=== PATIENT | female | born 1955 | race American Indian/Alaskan Native ===

== ENCOUNTER 2020-12-22 14:18 | Emergency (ER) | payer OTHER ==
[~2020-12-22] VITALS: Ht 157.5 cm; Wt 90.7 kg
[~2020-12-22 14:18] MED LIST: ACETAMINOPHEN325 M1 PO; KEFLEX500 MG PO; SIMVASTATIN80 MG PO
[2020-12-22] MEDS ORDERED: DULOXETINE HCL60 MG PO (14:37)
[2020-12-22] MEDS ORDERED: NAPROXEN500 MG PO (14:38)
[2020-12-22] MEDS ORDERED: SUPER THERAVIT1 EACH PO (14:38)
[2020-12-22] MEDS ORDERED: CELEXA20 MG PO (14:38)
[2020-12-22] MEDS ORDERED: LISINOPRIL10 MG PO (14:38)
[2020-12-22] MEDS ORDERED: GARLIC500 MG PO (14:39)
[2020-12-22] MEDS ORDERED: IRON (14:39)
[2020-12-22 18:12] LABS: HEMATOCRIT 37.9 % (37.0-47.0); MCH 30.5 pg (26.0-34.0); MCHC 34.3 g/dL (28.0-37.0); MCV 88.7 fL (80.0-100.0); MPV 7.8 fl. (7.2-11.1); NUCLEATED RBCS 0 /100WBC; PLATELET COUNT* 332 thou/uL (150-400); RBC 4.27 mil/uL (4.20-5.00); RDW-CV 12.6 % (10.5-14.5); WBC 8.9 thou/uL (4.0-11.0)
[2020-12-22 18:13] LABS: CALCIUM 8.7 mg/dL (8.5-10.1); CREATININE 0.8 mg/dL (0.6-1.3); POTASSIUM 3.2 mmol/L (3.5-5.1)
[2020-12-22 18:17] LABS: ALBUMIN 2.9 g/dL (3.4-5.0); TOTAL BILIRUBIN 0.4 mg/dL (<0.1-1.0); TOTAL PROTEIN 7.3 g/dL (6.4-8.2)
[2020-12-22] MEDS ORDERED: TESSALON PERLE100 M1 PO (18:30)
[2020-12-22 18:45] VITALS: BP 130/73
[2020-12-22 18:57] LABS: ABSOLUTE LYMPHOCYTES 1.2 thou/uL (0.8-5.3); ABSOLUTE MONOCYTES 0.9 thou/uL (0.0-1.2); ABSOLUTE NEUTROPHILS 6.8 thou/uL (1.6-8.1); PLATELET ESTIMATE ADEQUATE
[2020-12-22 18:58] LABS: MICROCYTES Occasional
--- NOTE | 2020-12-23 09:16 | EKG ---
[place] [address] ELECTROCARDIOGRAM REPORT Name: MANISHA MORALES Room: [facility]#: [id number] Admission: 12/22/20 Attend Phys: Discharge: 12/22/20 Date of : 51 Date of Service: 12/22/201806 Report #: [id number] THIS REPORT FOR: //name// [facility] ED Test Date: 2020-12-22 Test Time: 18:07:19 Pat Name: MANISHA MORALES Department: Room: Gender: F [employer] Cook: : 1955 Requested By: Anshul Szymanski Order Number: [id number] MD: Raf Gibson Measurements Intervals [place] Rate: 83 P: 36 VA: 142 QRS: -2 QRSD: 111 T: 29 QT: 413 QTc: 486 Interpretive Statements Sinus rhythm Low voltage, precordial leads Abnormal R-wave progression, late transition Compared to ECG 11/06/2012 12:53:15 Low QRS voltage now present Sinus tachycardia no longer present Electronically Signed On 12-23-2020 9:16:23 CDT by Raf Gibson [email or web address] <ELECTRONICALLY SIGNED> By: Juan Carlos Gibson MD, [facility] 12/23/20 0916 06 06 Juan Carlos Gibson MD, [facility] /EPI
== END 2020-12-22 18:45 | disposition home or self-care (01) ==
LOC: M.ERS 14:18
PROVIDERS: Emergency Medicine Emergency Medical Services
DX: J40 Bronchitis, not specified as acute or chronic (principal); Z20.822 Contact with and (suspected) exposure to COVID-19; E78.00 Pure hypercholesterolemia, unspecified; Z98.51 Tubal ligation status